=== PATIENT | female | born 1945 | race Caucasian/White ===

== ENCOUNTER 2019-06-19 18:28 | Inpatient (IN) | payer MEDICARE ==
[~2019-06-19] VITALS: Ht 170.2 cm; Wt 52.6 kg
[2019-06-19 18:58] LABS: BASOPHILS 0.3 % (0-2); EOSINOPHILS 0.1 % (0-7); HEMATOCRIT 48.8 % (36.0-48.0); HEMOGLOBIN 17.4 g/dL (12-16); IMMATURE GRANULOCYTES 0.1 % (0-5); MCH 30.9 pg (26.0-34.0); MCHC 35.7 g/dL (31.0-37.0); MCV 86.7 fL (80.0-100.0); MEAN PLATELET VOLUME 9.6 fL (7.4-10.4); MONOCYTES 7.4 % (2-11); NEUTROPHILS 80.1 % (40-80); PLATELET COUNT 203 10x3/uL (130-400); RBC 5.63 10x6/uL (4.00-5.40); WBC 7.7 10x3/uL (4.8-10.8)
[2019-06-19 19:07] LABS: APTT 26.8 SECONDS (22.8-39.4); INR 1.15 (0.85-1.17); PROTIME 14.2 SECONDS (11.6-15.0)
[2019-06-19 19:13] LABS: ALBUMIN 3.7 g/dL (3.4-5.0); ANION GAP 19.6 mmol/L (8-16); BILIRUBIN - TOTAL 3.21 mg/dL (0.2-1.3); CALCIUM 9.4 mg/dL (8.5-10.1); CREATININE - SERUM 0.8 mg/dL (0.6-1.3); POTASSIUM - SERUM 3.6 mmol/L (3.5-5.1); PROTEIN - SERUM 7.5 g/dL (6.4-8.2)
--- NOTE | 2019-06-19 19:57 | NUR ---
URINE SENT TO LAB.
[2019-06-19 20:07] LABS: APPEARANCE HAZY (CLEAR); BILIRUBIN NEGATIVE (NEGATIVE); COLOR YELLOW (YELLOW); GLUCOSE NEGATIVE (NEGATIVE); KETONE MODERATE mg/dL (NEGATIVE); NITRITE POSITIVE (NEGATIVE); PROTEIN TRACE mg/dL (NEGATIVE); SPECIFIC GRAVITY 1.025 (1.005-1.020); UROBILINOGEN NORMAL (NORMAL)
[2019-06-19 20:08] LABS: BACTERIA MANY /hpf (NONE SEEN); EPITHELIAL CELLS 0-5 /hpf (0-5); RED CELLS - URINE 0-5 /hpf (0-5); WHITE CELLS - URINE 25-50 /hpf (0-5)
[2019-06-19 20:26] LABS: UDS - AMPHET NEGATIVE QUAL (NEGATIVE); UDS - BARB NEGATIVE QUAL (NEGATIVE); UDS - BENZO NEGATIVE QUAL (NEGATIVE); UDS - COCAINE NEGATIVE QUAL (NEGATIVE); UDS - OPIATE NEGATIVE QUAL (NEGATIVE); UDS - PCP NEGATIVE QUAL (NEGATIVE); UDS - THC NEGATIVE QUAL (NEGATIVE)
[2019-06-19 21:40] VITALS: BP 157/77; BMI 18.2
[2019-06-19 21:49] VITALS: BP 157/77
[2019-06-20 02:49] VITALS: BP 165/96
[2019-06-20 04:43] LABS: BASOPHILS 0.1 % (0-2); EOSINOPHILS 0.4 % (0-7); HEMATOCRIT 45.7 % (36.0-48.0); HEMOGLOBIN 15.9 g/dL (12-16); IMMATURE GRANULOCYTES 0.3 % (0-5); LYMPHOCYTES 17.5 % (15-50); MCH 30.3 pg (26.0-34.0); MCHC 34.8 g/dL (31.0-37.0); MEAN PLATELET VOLUME 9.5 fL (7.4-10.4); MONOCYTES 10.3 % (2-11); NEUTROPHILS 71.4 % (40-80); PLATELET COUNT 209 10x3/uL (130-400); RBC 5.25 10x6/uL (4.00-5.40); WBC 7.8 10x3/uL (4.8-10.8)
[2019-06-20 05:19] LABS: ALBUMIN 3.1 g/dL (3.4-5.0); ANION GAP 15.2 mmol/L (8-16); BILIRUBIN - TOTAL 2.34 mg/dL (0.2-1.3); CALCIUM 8.8 mg/dL (8.5-10.1); CARBON DIOXIDE 23.3 mmol/L (21.0-32.0); CREATININE - SERUM 0.9 mg/dL (0.6-1.3); POTASSIUM - SERUM 3.5 mmol/L (3.5-5.1); PROTEIN - SERUM 6.4 g/dL (6.4-8.2); TROPONIN-I 0.03 ng/mL (0.000-0.060)
[2019-06-20 06:29] VITALS: BP 168/95
--- NOTE | 2019-06-20 07:15 | NUR ---
PATIENT RESTING WITH EYES CLOSED, AROUSES EASILY. APPEARS TO BE AWARE OF WHAT IS SAID TO HER, BUT UNABLE TO COMMUNICATE CLEARLY. LEFT SIDE FLACID WEAKNESS, AND RIGHT SIDE WEAKNESS. IV PATENT TO RIGHT FOREARM WITH NS INFUSING @ 100
[2019-06-20 10:26] VITALS: BP 167/85
[2019-06-20 11:47] LABS: CHOL - HDL RATIO 2.3 ratio (2.3-4.1); LDL-HDL RATIO 1.1 ratio (1.5-3.5)
[2019-06-20 12:14] VITALS: Ht 170.2 cm; Wt 52.6 kg
[2019-06-20 12:43] VITALS: BP 147/82
[2019-06-20 18:35] VITALS: BP 151/82
--- NOTE | 2019-06-20 19:30 | NUR ---
LYING SUPINE IN BED. EYES OPEN. DIFF COMMUNICATING. APHASIC. ABLE TO ANSWER YES AND NO. STATES, "WATER." EXPLAINED TO PT THAT SHE IS NPO DUE TO NEEDING SWALLOW STUDY AND SHE SAID OK. RUE, RLE, LLE WEAK. LUE IS FLACCID. LEVIN CATH DRAINING DK YELLOW URINE. TELEMETRY SHOWS AFIB WITH RATE OF 68. PROCAL @ 50 ML/HR INFUSING IN RT FOREARM. SR ELEVATED X2. CL IN REACH.
[2019-06-20 20:59] VITALS: BP 155/80
--- NOTE | 2019-06-20 23:55 | NUR ---
BATH GIVEN AND LINENS CHANGED PER ELEVATED WORK PLATFORM OPERATOR. LEVIN CATH LEAKING AND FOUND TO BE IN PTS VAGINA. 16 FR LEVIN CATH INSERTED PER STERILE TECHNIQUE WITH IMMEDIATE RETURN OF DK YELLOW URINE. PT MARISSA WELL.
--- NOTE | 2019-06-21 00:05 | NUR ---
C/O PAIN IN LT HIP. MEDICATED WITH TYLENOL SUPP. CL IN REACH.
[2019-06-21 01:02] VITALS: BP 164/79
[2019-06-21 04:55] VITALS: BP 164/88
--- NOTE | 2019-06-21 05:51 | NUR ---
HAS BEEN AWAKE ALL NIGHT. NO CHANGE IN NEURO CHECKS. CL IN REACH. NO DISTRESS.
[2019-06-21 06:15] LABS: BASOPHILS 0.2 % (0-2); EOSINOPHILS 1.6 % (0-7); HEMATOCRIT 43.9 % (36.0-48.0); HEMOGLOBIN 15.3 g/dL (12-16); IMMATURE GRANULOCYTES 0.2 % (0-5); LYMPHOCYTES 28.9 % (15-50); MCH 30.8 pg (26.0-34.0); MCHC 34.9 g/dL (31.0-37.0); MCV 88.5 fL (80.0-100.0); MONOCYTES 10.5 % (2-11); NEUTROPHILS 58.6 % (40-80); PLATELET COUNT 203 10x3/uL (130-400); RBC 4.96 10x6/uL (4.00-5.40)
[2019-06-21 06:35] LABS: WBC 5.2 10x3/uL (4.8-10.8)
[2019-06-21 06:44] LABS: ANION GAP 13.1 mmol/L (8-16); CALCIUM 8.7 mg/dL (8.5-10.1); CARBON DIOXIDE 25.3 mmol/L (21.0-32.0); CREATININE - SERUM 0.8 mg/dL (0.6-1.3); POTASSIUM - SERUM 3.4 mmol/L (3.5-5.1)
--- NOTE | 2019-06-21 07:34 | NUR ---
ALERT BUT NOT VERBALLY RESPONSIVE TO QUESTIONS ASKED. LUNGS CLEAR BILATERALLY IN ALL MCCARTHY. HEART SOUNDS S1 AND S2 HEARD IN ALL MCCARTHY. BOWEL SOUNDS ACTIVE X 4. SKIN INTACT WITHOUT REDNESS. IV PATENT TO RFA. DOES NOT APPEAR TO BE IN PAIN. BED LOW. FALL PRECAUTIONS IN PLACE. CALL ZAMAN AND PERSONAL ITEMS IN REACH. WILL CONTINUE TO MONITOR.
[2019-06-21 08:07] VITALS: BP 160/90
--- NOTE | 2019-06-21 09:30 | NUR ---
RESTING IN BED. DOES NOT APPEAR TO BE IN PAIN. WILL CONTINUE TO MONITOR.
--- NOTE | 2019-06-21 11:23 | MORECARE ---
CASE MANAGEMENT DISCHARGE SUMMARY PATIENT: MORGAN PENN UNIT: [id number] ADM DATE: 06/19/19 AGE: 73 : 46 SEX: F ROOM/BED: D.2209 AUTHOR: ARCELIA CORCORAN PHYSICIAN: REFERRING PHYSICIAN: NEETU BHAKTA MD DATE OF SERVICE: 06/21/19 Discharge Plan Patient Name: MORGAN PENN [facility] [facility] 1945 Planned Disposition: Anticipated Discharge Date: Discharge Date: Expected LOS: Initial Reviewer: [email or web address] Initial Review Date: 06/19/2019 Generated: 06/21/19 12:23 pm Comments DCP- Discharge Planning Updated by [email or web address]: Tabitha Rios on 06/21/19 10:[address] BHAKTA WANT TO TRANSFER PATIENT TO [facility] TO A DR ANTUNEZ, I HAVE CALLED THE TRANSFER CENTER AND SPOKE WITH [place] TO START THE TRANSFER PROCESS Patient Name: MORGAN PENN Page [id number] at 1123 All edits/amendments must be made on the electronic document DICTATION DATE: 06/21/191122 INSPECTOR WATCH ASSEMBLY: BE 06/21/191122 RPT#: [id number] DC DATE: STATUS: ADM IN [facility] [address] [place] [address] END OF REPORT
[2019-06-21] MEDS ORDERED: PLAVIX75 MG PO (11:49)
[2019-06-21] MEDS ORDERED: LEVOFLOXAC500 MG/100 IV (11:49)
--- NOTE | 2019-06-21 12:38 | NUR ---
DAVID WELLS NOTIFIED OF PATIENT BLOOD PRESSURE 180/90. STATES WILL PUT IN ORDER IF NEEDED.
--- NOTE | 2019-06-21 12:48 | NUR ---
RESTING IN BED. WILL CONTINUE TO MONITOR
[2019-06-21 13:13] VITALS: BP 181/92
--- NOTE | 2019-06-21 13:54 | NUR ---
REPORT CALLED TO TRAVON SINCLAIR AT [facility]. DENIES FURTHER QUESTIONS. PATIENT BP REASSESED PRIOR TO TRANSFER. BP 160/85. DISCHARGE EDUCATION PROVIDED TO PATIENT AND ALEJANDRO DE JESUS. SIGNED BY CLARK DE JESUS. ADVANCE DIRECTIVE PAPERWORK SIGNED BY PATIENT AND ALEJANDRO DE JESUS AND COPY PLACED WITH DISCHARGE PAPERWORK FOR [facility]. IV REMOVED FROM RFA WITH TIP INTACT. AMBULANCE CALLED TO TAKE PATIENT TO [facility].
--- NOTE | 2019-06-21 14:29 | NUR ---
RESTING IN BED. WAITING FOR AMBULANCE. NIECE AT BEDSIDE. WILL CONTINUE TO MONITOR.
--- NOTE | 2019-06-21 15:47 | NUR ---
PATIENT DISCHARGED TO [facility] BY AMBULANCE WITH ALL BELONGINGS.
--- NOTE | 2019-06-24 13:08 | MORECARE ---
CASE MANAGEMENT DISCHARGE SUMMARY PATIENT: MORGAN PENN UNIT: [id number] ADM DATE: 06/19/19 AGE: 73 : 46 SEX: F ROOM/BED: D.2209 AUTHOR: ARCELIA CORCORAN PHYSICIAN: REFERRING PHYSICIAN: NEETU BHAKTA MD DATE OF SERVICE: 06/24/19 Discharge Plan Patient Name: MORGAN PENN [facility] [facility] 1945 Planned Disposition: Anticipated Discharge Date: Discharge Date: 06/21/2019 Expected LOS: Initial Reviewer: [email or web address] Initial Review Date: 06/19/2019 Generated: 06/24/19 2:08 pm Comments DCP- Discharge Planning Updated by [email or web address]: Tabitha Rios on 06/21/19 10:[address] BHAKTA WANT TO TRANSFER PATIENT TO [facility] TO DR ANTUNEZ, I HAVE CALLED THE TRANSFER CENTER AND SPOKE WITH [place] TO START THE TRANSFER PROCESS Last DP export: 06/21/19 10:23 a Patient Name: MORGAN PENN Page [phone] at 1308 All edits/amendments must be made on the electronic document DICTATION DATE: 06/24/19 1308 MEDICAL CHIEF TECHNICIAN: BE 06/24/19 1308 RPT#: [id number] DC DATE:06/21/19 STATUS: DIS IN [place] [id number] [place] [address] END OF REPORT
== END 2019-06-21 15:47 | disposition short-term general hospital (02) | DRG 64 ==
LOC: D.ER 18:28 → D.MS 19:59
PROVIDERS: Emergency Medicine; Family Medicine; ADMIT Internal Medicine Nephrology; ATTEND Internal Medicine Nephrology
DX: I63.9 Cerebral infarction, unspecified (principal); E43 Unspecified severe protein-calorie malnutrition; G81.04 Flaccid hemiplegia affecting left nondominant side; Z68.1 Body mass index [BMI] 19.9 or less, adult; N39.0 Urinary tract infection, site not specified; I10 Essential (primary) hypertension; R47.01 Aphasia; Z72.0 Tobacco use; I65.21 Occlusion and stenosis of right carotid artery